=== PATIENT | female | born 1995 | race Caucasian/White ===

== ENCOUNTER 2016-05-14 17:41 | Emergency (ER) | payer MEDICAID, OTHER ==
[2016-05-14] MEDS ORDERED: IBUPROFEN 800 MG TABLET PO ONE (18:41)
--- NOTE | 2016-05-14 18:41 | ER Document Report ---
ED Medical Screen (RME) - General Stated Complaint: LEFT SIDE NECK NUMBNESS Mode of Arrival: Ambulatory Information source: Patient Notes: Patient was weightlifting felt a pop to left side of neck. Patient with muscle tenderness and spasm to lateral aspect of neck. I have greeted and performed a rapid initial assessment of this patient. A comprehensive ED assessment and evaluation of the patient, analysis of test results and completion of the medical decision making process will be conducted by additional ED providers. TRAVEL OUTSIDE OF THE [place] IN LAST 30 DAYS: No - Related Data Allergies/Adverse Reactions: hydrocortisone [From [facility]] Allergy (Verified 10/16/13 10:14) yerba whitney [From [facility]] Allergy (Verified 10/16/13 10:14) Past Medical History Psychiatric Medical History: Reports: Hx Attention Deficit Hyperactivity Disorder - Immunizations Immunizations up to date: Yes Hx Diphtheria, Pertussis, Tetanus Vaccination: Yes Physical Exam - Vital signs Vitals: Temp Pulse Resp BP Pulse Ox 97.9 F 90 20 132/93 H 100 05/14/16 18:36 05/14/16 18:36 05/14/16 18:36 05/14/16 18:36 05/14/16 18:36 - HEENT Neck: Other - Left lateral neck muscle tenderness and spasm Course - Vital Signs Vital signs: Temp Pulse Resp BP Pulse Ox 97.9 F 90 20 132/93 H 100 05/14/16 18:36 05/14/16 18:36 05/14/16 18:36 05/14/16 18:36 05/14/16 18:36
--- NOTE | 2016-05-15 00:54 | ER Document Report ---
ED Neck/Back Problem - General Chief Complaint: Neck pain, L side pain Stated Complaint: LEFT SIDE NECK NUMBNESS Time seen by provider: 00:48 Mode of Arrival: Ambulatory Information source: Patient Notes: 20-year-old female presents to ED for pain in the left side of her neck. She states she was lifting weights and felt a pop in the left side of her neck which is cause pain down the left side of her back. She states she was lifting weights about 4:00. She states she received ibuprofen in the emergency room when her rapid medical evaluation was done. She states the ibuprofen did not help her. Last menstrual period 05/12/2016. TRAVEL OUTSIDE OF THE [place] IN LAST 30 DAYS: No - HPI Onset: This afternoon - 4. Where: Public place - [place] Onset: Sudden - And has gradually gotten worse Timing: Still present Quality of pain: Sharp Severity: Severe Pain Level: 5 Context: Other - States she was lifting weights Recent injury: Yes Associated symptoms: Other - Left-sided neck going into her shoulder. Exacerbated by: Movement of neck Relieved by: Nothing Similar symptoms previously: No Recently seen / treated by doctor: No - Related Data Allergies/Adverse Reactions: hydrocortisone [From [facility]] Allergy (Verified 10/16/13 10:14) yerba whitney [From [facility]] Allergy (Verified 10/16/13 10:14) Past Medical History - General Information source: Patient Last Menstrual Period: 05/12/2016 - Social History Smoking Status: Never Smoker Cigarette use (# per day): No Chew tobacco use (# tins/day): No Smoking Education Provided: No Frequency of alcohol use: None Drug Abuse: None Occupation: no Lives with: Other - Friend Family History: CAD, DM Patient has suicidal ideation: No Patient has homicidal ideation: No - Past Medical History Cardiac Medical History: Reports: None Pulmonary Medical History: Reports: None EENT Medical History: Reports: None Neurological Medical History: Reports: None Endocrine Medical History: Reports: None Renal/ Medical History: Reports: None Malignancy Medical History: Reports: None GI Medical History: Reports: None Musculoskeltal Medical History: Reports Hx Musculoskeletal Trauma Skin Medical History: Reports None Psychiatric Medical History: Reports: Hx Attention Deficit Hyperactivity Disorder Traumatic Medical History: Reports: Hx Fractures - Thumb Infectious Medical History: Reports: None Past Surgical History: Reports: Hx Oral Surgery - Immunizations Immunizations up to date: Yes Hx Diphtheria, Pertussis, Tetanus Vaccination: Yes - 2014 Review of Systems - Review of Systems Constitutional: No symptoms reported Cardiovascular: No symptoms reported Respiratory: No symptoms reported Gastrointestinal: No symptoms reported Genitourinary: No symptoms reported Female Genitourinary: No symptoms reported Musculoskeletal: Muscle pain, Neck pain - Left-sided neck Skin: No symptoms reported Hematologic/Lymphatic: No symptoms reported Neurological/Psychological: No symptoms reported -: Yes All other systems reviewed and negative Physical Exam - Vital signs Vitals: Temp Pulse Resp BP Pulse Ox 97.9 F 90 20 132/93 H 100 05/14/16 18:36 05/14/16 18:36 05/14/16 18:36 05/14/16 18:36 05/14/16 18:36 Interpretation: Normal - General General appearance: Appears well, Alert - HEENT Head: Normocephalic, Atraumatic Eyes: Normal Pupils: PERRL - Respiratory Respiratory status: No respiratory distress Chest status: Nontender Breath sounds: Normal Chest palpation: Normal - Cardiovascular Rhythm: Regular Heart sounds: Normal auscultation Murmur: No - Abdominal Inspection: Normal Distension: No distension Bowel sounds: Normal Tenderness: Nontender Organomegaly: No organomegaly - Back Back: Normal, Tender - Upper left back and neck. No: Deformity/step-off, CVA tenderness, Vertebra tenderness, Scars, Scoliosis, Wounds - Extremities General upper extremity: Normal inspection, Nontender, Normal color, Normal ROM , Normal temperature General lower extremity: Normal inspection, Nontender, Normal color, Normal ROM , Normal temperature, Normal weight bearing. No: Nancy's sign - Neurological Neuro grossly intact: Yes Cognition: Normal Orientation: AAOx4 Tang Coma Scale Eye Opening: Spontaneous Tang Coma Scale Verbal: Oriented Hampton Coma Scale Motor: Obeys Commands Tang Coma Scale Total: 15 Speech: Normal Motor strength normal: LUE, RUE, LLE, RLE Sensory: Normal - Psychological Associated symptoms: Normal affect, Normal mood - Skin Skin Temperature: Warm Skin Moisture: Dry Skin Color: Normal Course - Re-evaluation Re-evalutation: 05/15/16 01:00 Instructed patient on use of ice and ibuprofen and muscle relaxers. Instructed patient to follow-up in the next day or so with either her primary doctor or Dr. Christian sports medicine. Instructed patient on the importance of exercises to this muscle not holding still. - Vital Signs Vital signs: Temp Pulse Resp BP Pulse Ox 98.0 F 88 18 128/85 H 99 05/15/16 00:49 05/15/16 00:49 05/14/16 23:07 05/15/16 00:49 05/15/16 00:49 Discharge - Discharge Clinical Impression: Cervical muscle strain Qualifiers: Encounter type: initial encounter Qualified Code(s): S16.1XXA - Strain of muscle, fascia and tendon at neck level, initial encounter Disposition: HOME, SELF-CARE Instructions: Family Physicians / Practices Additional Instructions: NECK INJURY (CERVICAL STRAIN): You have a neck strain. This is an injury to the muscles and ligaments in the neck. There is no evidence of a fracture of the neck bones. Also, no injury to the spinal cord or nerve roots was detected. Usually, stiffness and pain INCREASE for the first 24-48 hours after the injury. The pain will gradually resolve and the neck will become more mobile. Most patients are back at work or school within a few days. Typically, complete healing takes about two or three weeks. The usual initial treatment is rest and cold packs. A neck collar may be placed to keep the muscles of the neck at rest. Antiinflammatory and muscle relaxing medication are often used to reduce the spasm and irritation. You should call the doctor, or go to the hospital, if you develop numbness or weakness in any extremity, problems with your bladder or bowel, or pain radiating down the arms. MUSCLE STRAIN: You have strained a muscle -- torn the fibers within the muscle. This often occurs with strenuous exertion, or during an injury that suddenly stretches the muscle. The seriousness of a strain varies. Some strains heal within days, others cause problems for months. X-rays cannot show a muscle strain. X-rays are taken only if symptoms suggest that a fracture could be present. The usual treatment of a muscle strain is rest and ice packs. Sometimes, a sling, splint, or crutches may be necessary to rest the muscle. The muscle can be used again once pain subsides. Severe strains require a special exercise and stretching program to prevent permanent stiffness and disability. Your doctor will advise you if this will be necessary. Call the doctor immediately if pain or swelling becomes severe, or if numbness or discoloration develop. ICE PACKS: Apply ice packs frequently against the painful area. Many different schedules are recommended, such as "20 minutes on, 20 minutes off" or "one hour ice, two hours rest." If you need to work, you may need to go longer between ice treatments. You should plan to have the area ice packed AT LEAST one fourth of the time. The ice should be applied over the wrap, tape, or splint, or over a layer of cloth -- not directly against the skin. Some ice bags have a built-in cloth and can be put directly on the skin. WARM PACKS: After approximately two days, apply gentle heat (such as a heating pad or hot water bottle) for about 20 to 30 minutes about every two hours -- at least four times daily. Warmth and elevation will help you make a more rapid recovery , and will ease the pain considerably. Do not use HOT heat, and never apply heat for longer than 30 minutes. The continuous heat can invisibly damage skin and muscles -- even when no burn is seen on the surface. Damaged muscles can make you MORE sore. MUSCLE RELAXERS: Muscle relaxing medications are usually prescribed for acute muscle spasm or injury to the neck and back. They are often combined with antiinflammatory pain medication for increased relief. You may stop the muscle relaxer when the pain and stiffness have improved. Start the medication again if spasms recur. Muscle relaxers may cause drowsiness, especially with the first dose. Do not operate machinery or drive while under the effects of the medication. Most muscle relaxers last up to 24 hours. Do not combine the medication with alcohol. Ibuprofen Ibuprofen is an excellent, safe drug for pain control. In addition, it has potent antiinflammatory effects which are beneficial, especially in the treatment of injuries, arthritis, or tendonitis. It's best to take ibuprofen with food. Persons with ulcer disease or allergy to aspirin should notify their physician of this before taking ibuprofen. Take the medication exactly as prescribed. Don't take additional doses unless instructed to do so by your doctor. If you develop wheezing, shortness of breath, hives, faintness, stomach pain, vomiting, or dark black stools, return for re-evaluation at once. FOLLOW-UP CARE: If you have been referred to a physician for follow-up care, call the physician s office for an appointment as you were instructed or within the next two days. If you experience worsening or a significant change in your symptoms, notify the physician immediately or return to the Emergency Department at any time for re-evaluation. Prescriptions: Ibuprofen 600 mg PO Q6HP PRN #20 tablet PRN Reason: Cyclobenzaprine HCl [Flexeril 10 mg Tablet] 10 mg PO TIDP PRN #15 tab PRN Reason: Forms: Elevated Blood Pressure Referrals: JOSE CHRISTIAN MD [ACTIVE STAFF] - Follow up as needed
[2016-05-15 00:57] VITALS: BP 128/85
[2016-05-15] MEDS ORDERED: CYCLOBENZAPRINE HCL 10 MG TABLET PO ONE (00:58)
== END 2016-05-15 01:05 | disposition home or self-care (01) ==
LOC: ER 17:41
DX: S16.1XXA Strain of muscle, fascia and tendon at neck level, initial encounter (principal); X50.0XXA Overexertion from strenuous movement or load, initial encounter; Y93.B9 Activity, other involving muscle strengthening exercises; Y92.39 Other specified sports and athletic area as the place of occurrence of the external cause; M54.2 Cervicalgia; Z88.8 Allergy status to other drugs, medicaments and biological substances
CPT/HCPCS: 99283

== ENCOUNTER 2017-06-17 14:10 | Emergency (ER) | payer SELFPAY ==
[2017-06-17] MEDS ORDERED: ACETAMINOPHEN 325 MG TABLET PO ONE (14:48)
[2017-06-17] MEDS ORDERED: IBUPROFEN 800 MG TABLET PO ONE (16:03)
--- NOTE | 2017-06-17 16:04 | ER Document Report ---
HPI - HPI Patient complains to provider of: cold symptoms Onset: Other - 4 days Onset/Duration: Persistent Quality of pain: Achy Pain Level: 5 Context: Patient presents complaining of four-day history of fever, sore throat, body aches and nonproductive cough. Patient denies any vomiting or diarrhea. 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 Associated Symptoms: Nonproductive cough, Fever, Sore throat. denies: Earache, Nausea, Vomiting Exacerbated by: Denies Relieved by: Denies Similar symptoms previously: Yes Recently seen / treated by doctor: No - ROS ROS below otherwise negative: Yes Systems Reviewed and Negative: Yes All other systems reviewed and negative - CONSTITUTIONAL Constitutional: REPORTS: Fever - EENT EENT: REPORTS: Sore Throat - RESPIRATORY Respiratory: REPORTS: Coughing. DENIES: Trouble Breathing - GASTROINTESTINAL Gastrointestinal: DENIES: Abdominal Pain, Nausea, Patient vomiting, Diarrhea - REPRODUCTIVE Reproductive: DENIES: : - MUSCULOSKELETAL Musculoskeletal: DENIES: Back Pain - DERM Skin Color: Normal Skin Problems: None Past Medical History - General Information source: Patient - Social History Smoking Status: Never Smoker Frequency of alcohol use: None Drug Abuse: None Occupation: daycare Lives with: Family Family History: CAD, DM Renal/ Medical History: Denies: Hx Peritoneal Dialysis Musculoskeltal Medical History: Reports Hx Musculoskeletal Trauma Psychiatric Medical History: Reports: Hx Attention Deficit Hyperactivity Disorder Traumatic Medical History: Reports: Hx Fractures - Thumb Past Surgical History: Reports: Hx Oral Surgery - Immunizations Immunizations up to date: Yes Hx Diphtheria, Pertussis, Tetanus Vaccination: Yes - 2014 Vertical Provider Document - CONSTITUTIONAL Agree With Documented VS: Yes Exam Limitations: No Limitations General Appearance: WD/WN, No Apparent Distress - INFECTION CONTROL TRAVEL OUTSIDE OF THE [place] IN LAST 30 DAYS: No - HEENT HEENT: Atraumatic, Normocephalic, Pharyngeal Tenderness, Pharyngeal Erythema. negative: Pharyngeal Exudate, Tympanic Membrane Red, Tympanic Membrane Bulging - NECK Neck: Normal Inspection, Supple. negative: Lymphadenopathy-Left, Lymphadenopathy-Right - RESPIRATORY Respiratory: No Respiratory Distress, Chest Non-Tender. negative: Rales, Rhonchi, Wheezing O2 Sat by Pulse Oximetry: 99 Notes: dry cough - CARDIOVASCULAR Cardiovascular: Regular Rhythm, No Murmur, Tachycardia - GI/ABDOMEN Gastrointestinal: Abdomen Soft, Abdomen Non-Tender - BACK Back: Normal Inspection. negative: CVA Tenderness-Right, CVA Tenderness-Left - MUSCULOSKELETAL/EXTREMETIES Musculoskeletal/Extremeties: LAI PIERRE - NEURO Level of Consciousness: Awake, Alert, Appropriate Motor/Sensory: No Motor Deficit - DERM Integumentary: Warm, Dry, No Rash Course - Re-evaluation Re-evalutation: 06/17/17 17:10 Respirations unlabored. Patient nontoxic in appearance. No concern for pneumonia, or SERVICE ESTABLISHMENT ATTENDANT, or sepsis. Discussed worsening signs or symptoms of patient to return immediately. Patient verbalized understanding and agrees with plan of care. - Vital Signs Vital signs: Temp Pulse Resp BP Pulse Ox 99.4 F 115 H 21 H 108/66 99 06/17/17 15:49 06/17/17 14:42 06/17/17 14:42 06/17/17 14:42 06/17/17 14:42 - Laboratory Laboratory results interpreted by me: 06/17/17 17:10 Labs- Entire Visit 06/17/17 16:10 Group A Strep Rapid NEGATIVE - Diagnostic Test Radiology reviewed: Reports reviewed Discharge - Discharge Clinical Impression: Fever Qualifiers: Fever type: unspecified Qualified Code(s): R50.9 - Fever, unspecified Upper respiratory infection Qualifiers: URI type: unspecified URI Qualified Code(s): J06.9 - Acute upper respiratory infection, unspecified Condition: Stable Disposition: HOME, SELF-CARE Instructions: Acetaminophen, Fever ([facility]), Upper Respiratory Illness ([facility]) Additional Instructions: Return immediately for any new or worsening symptoms Followup with your primary care provider, call tomorrow to make a followup appointment Prescriptions: Benzonatate [Tessalon Perle 100 mg Capsule] 100 mg PO Q8HP PRN #20 cap PRN Reason: Naproxen [Naprosyn 250 Nmg Tablet] 1 tab PO BID #14 tablet Forms: Return to Work Referrals: [facility] [Provider Group] - Follow up as needed
--- NOTE | 2017-06-17 17:01 | RADIOLOGY REPORT (SQ) ---
EXAM DESCRIPTION: CHEST PA/LAT COMPLETED DATE/TIME: 06/17/2017 4:46 pm REASON FOR STUDY: fever, cough COMPARISON: None. EXAM PARAMETERS: NUMBER OF VIEWS: two views TECHNIQUE: Digital Frontal and Lateral radiographic views of the chest acquired. RADIATION DOSE: NA LIMITATIONS: none FINDINGS: LUNGS AND PLEURA: No opacities, masses or pneumothorax. No pleural effusion. MEDIASTINUM AND HILAR STRUCTURES: No masses or contour abnormalities. HEART AND VASCULAR STRUCTURES: Heart normal size. No evidence for failure. BONES: No acute findings. HARDWARE: None in the chest. OTHER: No other significant finding. IMPRESSION: NO SIGNIFICANT RADIOGRAPHIC FINDING IN THE CHEST. TECHNICAL DOCUMENTATION: JOB ID: [id number] [employer]- All Rights Reserved Reading location - IP/workstation name: [email or web address]
[2017-06-17 17:25] VITALS: BP 112/64
== END 2017-06-17 17:26 | disposition home or self-care (01) ==
LOC: ER 14:10
DX: J06.9 Acute upper respiratory infection, unspecified (principal); R50.9 Fever, unspecified; J02.9 Acute pharyngitis, unspecified; R05 Cough
CPT/HCPCS: 71046; 87070; 87077; 87880; 99284

== ENCOUNTER 2017-08-19 10:15 | Emergency (ER) | payer SELFPAY ==
[2017-08-19] MEDS ORDERED: ONDANSETRON 4 MG TAB.RAPDIS PO ONE (11:00)
[2017-08-19] MEDS ORDERED: DICYCLOMINE HCL 20 MG TABLET PO ONE (11:00)
--- NOTE | 2017-08-19 11:02 | ER Document Report ---
ED Medical Screen (RME) - General Chief Complaint: Vomiting Stated Complaint: VOMITING Time Seen by Provider: 08/19/17 10:56 Notes: RAPID MEDICAL EVALUATION DISCLOSURE I have seen this patient as part of a Rapid Medical Evaluation and, if applicable, placed any initially appropriate orders. The patient will be seen and fully evaluated, including a full history and physical exam, by a provider ( in Main ED or Fast Track) when a room becomes available. 21-year-old female here with complaints of nausea and vomiting as well as epigastric abdominal pain ongoing for the past 2-3 days. Pain is worse with standing and improved with eating something. She has tried using Tylenol with minimal relief. She does not have diarrhea fevers chills dysuria hematuria. No known sick contacts. Does not think she consumed anything that may have given her food poisoning. EXAM CTAB RRR Mild epigastric TTP Minimal RUQ TTP, no Leary sign No peritoneal signs TRAVEL OUTSIDE OF THE [place] IN LAST 30 DAYS: No - Related Data Allergies/Adverse Reactions: hydrocortisone [From [facility]] Allergy (Verified 08/19/17 10:16) yerba whitney [From [facility]] Allergy (Verified 08/19/17 10:16) Past Medical History Renal/ Medical History: Denies: Hx Peritoneal Dialysis Musculoskeltal Medical History: Reports Hx Musculoskeletal Trauma Psychiatric Medical History: Reports: Hx Attention Deficit Hyperactivity Disorder Traumatic Medical History: Reports: Hx Fractures - Thumb Past Surgical History: Reports: Hx Oral Surgery - Immunizations Immunizations up to date: Yes Hx Diphtheria, Pertussis, Tetanus Vaccination: Yes - 2014 Physical Exam - Vital signs Vitals: Temp Pulse Resp BP Pulse Ox 98.5 F 82 18 119/72 100 08/19/17 10:21 08/19/17 10:21 08/19/17 10:21 08/19/17 10:21 08/19/17 10:21 Course - Vital Signs Vital signs: Temp Pulse Resp BP Pulse Ox 98.5 F 82 18 119/72 100 08/19/17 10:21 08/19/17 10:21 08/19/17 10:21 08/19/17 10:21 08/19/17 10:21
--- NOTE | 2017-08-19 11:16 | ER Document Report ---
ED GI/ - General Chief Complaint: Vomiting Stated Complaint: VOMITING Time Seen by Provider: 08/19/17 10:56 Notes: Patient is a 21-year-old female presents emergency from the chief complaint of epigastric pain, nausea and vomiting that started on Saturday. She admits to sharp stabbing burning pain in the epigastric area with associated nausea and vomiting. Patient states that she has been trying Tylenol [id number] without much improvement. She denies any other medical issues. Last menstrual period was last month. TRAVEL OUTSIDE OF THE [place] IN LAST 30 DAYS: No - Related Data Allergies/Adverse Reactions: hydrocortisone [From [facility]] Allergy (Verified 08/19/17 10:16) yerba whitney [From [facility]] Allergy (Verified 08/19/17 10:16) Past Medical History - Social History Smoking Status: Never Smoker Frequency of alcohol use: None Drug Abuse: None Family History: CAD, DM Patient has suicidal ideation: No Patient has homicidal ideation: No Renal/ Medical History: Denies: Hx Peritoneal Dialysis Musculoskeltal Medical History: Reports Hx Musculoskeletal Trauma Psychiatric Medical History: Reports: Hx Attention Deficit Hyperactivity Disorder Traumatic Medical History: Reports: Hx Fractures - Thumb Past Surgical History: Reports: Hx Oral Surgery - Immunizations Immunizations up to date: Yes Hx Diphtheria, Pertussis, Tetanus Vaccination: Yes - 2014 Physical Exam - Vital signs Vitals: Temp Pulse Resp BP Pulse Ox 98.5 F 82 18 119/72 100 08/19/17 10:21 08/19/17 10:21 08/19/17 10:21 08/19/17 10:21 08/19/17 10:21 - Notes Notes: PHYSICAL EXAM GENERAL: Alert, interacts well. HEAD: Normocephalic, atraumatic. EYES: Pupils equal, round, and reactive to light. Extraocular movements intact. ENT: Oral mucosa moist, tongue midline. NECK: Full range of motion. Supple. Trachea midline. LUNGS: Clear to auscultation bilaterally, no wheezes, rales, or rhonchi. No respiratory distress. HEART: Regular rate and rhythm. No murmurs, gallops, or rubs. ABDOMEN: Soft, nondistended, epigastric tenderness no guarding, rebound, or rigidity.. Bowel sounds present in all 4 quadrants. EXTREMITIES: Moves all 4 extremities spontaneously. No edema, radial and dorsalis pedis pulses 2/4 bilaterally. No cyanosis. NEUROLOGICAL: Alert and oriented x4. Normal speech. PSYCH: Normal affect, normal mood. SKIN: Warm, dry, normal turgor. No rashes or lesions noted. Course - Re-evaluation Re-evalutation: 08/19/17 16:38 Patient is 21-year-old female is hemodynamically stable, no acute distress and afebrile. Patient with tender epigastric abdomen without any rebound, concerns or peritonitis. Patient did not improve after 2 p.o. GI cocktails. Based on this sent for CT scan to rule out for any concerns or perforating ulcer or esophageal perforation. CT was negative for any concern of this. Patient had significant improvement after IV pain medication, Protonix and IV fluids. Repeat abdominal exams nontender to palpation. Patient will be discharged home on GI prophylactic medications and nausea medications to follow-up with gastroenterology. Patient agrees with plan. - Vital Signs Vital signs: Temp Pulse Resp BP Pulse Ox 98.5 F 82 18 119/72 100 08/19/17 10:21 08/19/17 10:21 08/19/17 10:21 08/19/17 10:21 08/19/17 10:21 - Laboratory Result Diagrams: 08/19/17 11:23 08/19/17 11:23 - Diagnostic Test Radiology reviewed: Image reviewed, Reports reviewed Discharge - Discharge Clinical Impression: Gastritis Qualifiers: Gastritis type: unspecified gastritis Chronicity: acute Gastritis bleeding: without bleeding Qualified Code(s): K29.00 - Acute gastritis without bleeding Condition: Good Disposition: HOME, SELF-CARE Instructions: Gastritis ([facility]), Gastroenterology Prescriptions: Omeprazole Magnesium [Prilosec Otc] 20 mg PO DAILY #30 tablet. Ondansetron HCl [Zofran 4 mg Tablet] 1 - 2 tab PO Q4H PRN #10 tablet PRN Reason: Promethazine HCl [Phenergan 25 mg Tablet] 1 - 2 tab PO Q6H PRN #15 tablet PRN Reason: Sucralfate [Carafate 1 gm Tablet] 1 gm PO ACHS #120 tablet Forms: Return to Work Referrals: KAE NGUYEN MD [ACTIVE STAFF] - Follow up in 3-5 days
[2017-08-19 11:48] LABS: ABSOLUTE EOSINOPHILS # (AUTO) 0.1 10^3/uL (0.0-0.6); ABSOLUTE LYMPHOCYTES (AUTO) 1.5 10^3/uL (0.5-4.7); ABSOLUTE MONOCYTES (AUTO) 0.6 10^3/uL (0.1-1.4); ABSOLUTE NEUT (AUTO) 7.1 10^3/uL (1.7-8.2); BASOPHILS % (AUTO) 0.3 % (0-2); EOSINOPHILS % (AUTO) 0.6 % (0-6); HEMATOCRIT 42.2 % (36.0-47.0); HEMOGLOBIN 14.3 g/dL (12.0-15.5); LYMPHOCYTES % (AUTO) 16.5 % (13-45); MEAN CORPUSCULAR HEMOGLOBIN 31.5 pg (27.0-33.4); MEAN CORPUSCULAR VOLUME 93 fl (80-97); MONOCYTES % (AUTO) 6.6 % (3-13); PLATELET COUNT 222 10^3/uL (150-450); RED BLOOD COUNT 4.56 10^6/uL (3.72-5.28); RED CELL DISTRIBUTION WIDTH 13.4 % (11.5-14.0); TOTAL CELLS COUNTED % (AUTO) 100 %; WHITE BLOOD COUNT 9.4 10^3/uL (4.0-10.5)
[2017-08-19 12:07] LABS: ALANINE AMINOTRANSFERASE 22 U/L (9-52); ALBUMIN 4.5 g/dL (3.5-5.0); ALKALINE PHOSPHATASE 60 U/L (38-126); ANION GAP 11 (5-19); ASPARTATE AMINO TRANSFERASE 15 U/L (14-36); BILIRUBIN,DIRECT 0.3 mg/dL (0.0-0.4); BILIRUBIN,TOTAL 0.6 mg/dL (0.2-1.3); BLOOD UREA NITROGEN 7 mg/dL (7-20); CALCIUM 9.5 mg/dL (8.4-10.2); CARBON DIOXIDE 30 mmol/L (22-30); CHLORIDE 101 mmol/L (98-107); GLUCOSE 90 mg/dL (75-110); LIPASE 24.8 U/L (23-300); POTASSIUM 4.4 mmol/L (3.6-5.0); SODIUM 142.4 mmol/L (137-145); TOTAL PROTEIN 7.3 g/dL (6.3-8.2)
[2017-08-19] MEDS ORDERED: METOCLOPRAMIDE HCL ORAL SOLN 10 MG/10 ML UDCUP PO ONE (12:31)
[2017-08-19] MEDS ORDERED: LIDOCAINE 2% VISCOUS SOLN 20 ML UDCUP PO ONE (12:31)
[2017-08-19] MEDS ORDERED: MAG HYDROX/AL HYDROX/SIMETH SUSP 30 ML UDCUP PO ONE (12:31)
[2017-08-19] MEDS ORDERED: PANTOPRAZOLE SODIUM 40 MG VIAL IV ONE (14:10)
[2017-08-19] MEDS ORDERED: PROCHLORPERAZINE EDISYLATE INJ 10 MG/2 ML VIAL IV ONE (14:36)
[2017-08-19] MEDS ORDERED: KETOROLAC TROMETHAMINE INJ/PF 30 MG/1 ML SDV IV ONE (14:36)
--- NOTE | 2017-08-19 14:45 | RADIOLOGY REPORT (SQ) ---
EXAM DESCRIPTION: CT ABD/PELVIS WITH IV ONLY COMPLETED DATE/TIME: 08/19/2017 2:24 pm REASON FOR STUDY: epigastric pain COMPARISON: None. TECHNIQUE: CT scan of the abdomen and pelvis performed using helical scanning technique with dynamic intravenous contrast injection. No oral contrast. Images reviewed with lung, soft tissue, and bone windows. Reconstructed coronal and sagittal MPR images reviewed. Delayed images for evaluation of the urinary system also acquired. All images stored on PACS. All CT scanners at this facility use dose modulation, iterative reconstruction, and/or weight based d osing when appropriate to reduce radiation dose to as low as reasonably achievable (ALARA). [facility]: Dose Right [facility]: CareDose [facility]: Dose Right [facility]: Teradose 4D [facility]: [employer] CONTRAST TYPE AND DOSE: 63 mL of IV Isovue 370- low osmolar. RENAL FUNCTION: None required. The patient is less than 50 years old. RADIATION DOSE: 11 mGy. LIMITATIONS: No oral contrast FINDINGS: There is marked wall thickening and luminal narrowing of the gastric antrum involving a 10 cm long segment of the stomach wall. This is worrisome for gastritis. No intramural air. No surro unding inflammation in the abdominal wall fat. No free upper abdominal fluid. This report was mendoza d to Sudha Stanley in the emergency room, 1425 hours 08/19/2017. These findings are best demonstrat ed on axial images 23-30, sagittal images 45-59, and coronal image 15. Remainder of the gastrointestinal tract is otherwise unremarkable. No free intraperitoneal air or fl uid. LOWER CHEST: No significant findings. No nodules or infiltrates. LIVER: Normal size. No masses. No dilated ducts. SPLEEN: Normal size. No focal lesions. PANCREAS: No masses. No significant calcifications. No adjacent inflammation or peripancreatic fluid collections. Pancreatic duct not dilated. GALLBLADDER: No identified stones by CT criteria. No inflammatory changes to suggest cholecystitis. ADRENAL GLANDS: No significant masses or asymmetry. RIGHT KIDNEY AND URETER: No solid masses. No significant calcifications. No hydronephrosis or hyd roureter. LEFT KIDNEY AND URETER: No solid masses. No significant calcifications. No hydronephrosis or hydr oureter. AORTA AND VESSELS: No aneurysm. No dissection. Renal arteries, SMA, celiac without stenosis. RETROPERITONEUM: No retroperitoneal adenopathy, hemorrhage or masses. BOWEL AND PERITONEAL CAVITY: Marked wall thickening and luminal narrowing of the gastric antrum worri some for gastritis. A discrete ulcer is not definitely seen by CT but could be missed without oral c ontrast. Remainder of the gastrointestinal tract is unremarkable APPENDIX: Normal. PELVIS: No mass. No free fluid. Normal bladder. ABDOMINAL WALL: No masses. No hernias. BONES: No significant or acute findings. OTHER: No other significant finding. IMPRESSION: Diffuse thickening of the gastric antrum worrisome for gastritis. A discrete ulcer coul d not be excluded by CT. TECHNICAL DOCUMENTATION: JOB ID: [id number] Quality ID # [id number]: Final reports with documentation of one or more dose reduction techniques (e.g., Au tomated exposure control, adjustment of the mA and/or kV according to patient size, use of iterative reconstruction technique) 2010 [employer]- All Rights Reserved Reading location - IP/workstation name: [email or web address]
[2017-08-19] MEDS ORDERED: FAMOTIDINE INJ/PF 20 MG/2 ML SDV IV ONE (14:50)
[2017-08-19] MEDS ORDERED: NORMAL SALINE 1000 ML 1,000 ML IV ONE (15:03)
[2017-08-19 16:54] VITALS: BP 118/68
== END 2017-08-19 17:02 | disposition home or self-care (01) ==
LOC: ER 10:15
DX: K29.00 Acute gastritis without bleeding (principal); R10.13 Epigastric pain; R11.2 Nausea with vomiting, unspecified; Z88.8 Allergy status to other drugs, medicaments and biological substances
CPT/HCPCS: 99284; 96361; 96374; 96375; 36415; 83690; 85025; 81025; 80053; 74177; J3490 ×2; S0119; J1885; S0164; J0780; J7030; S0028

== ENCOUNTER 2017-08-20 22:31 | Emergency (ER) | payer SELFPAY ==
[2017-08-20 23:03] VITALS: BP 130/76
[2017-08-21] MEDS ORDERED: AMOXICILLIN TRYHYD 250 MG/5 ML SUSP 80 ML (ER DISP) PO ONE (01:02)
--- NOTE | 2017-08-21 01:06 | ER Document Report ---
ED ENT - General Chief Complaint: Ear Pain Stated Complaint: EAR PAIN Time Seen by Provider: 08/21/17 00:57 Mode of Arrival: Ambulatory Information source: Patient Notes: 21-year-old female presents to ED for complaint of left ear pain. She states that the pain was achy for about 8:00 tonight it became excruciating. TRAVEL OUTSIDE OF THE [place] IN LAST 30 DAYS: No - HPI Patient complains to provider of: Ear problem Onset: Yesterday Onset/Duration: Gradual, Worse Quality of pain: Achy, Sharp, Stabbing Severity: Severe Pain Level: 5 Context: Recent Illness Location of pain: Ears Associated symptoms: Ear pain, Ear drainage Similar symptoms previously: Yes Recently seen / treated by doctor: No - Related Data Allergies/Adverse Reactions: hydrocortisone [From [facility]] Allergy (Verified 08/19/17 10:16) yerba whitney [From [facility]] Allergy (Verified 08/19/17 10:16) Past Medical History - General Information source: Patient - Social History Smoking Status: Never Smoker Cigarette use (# per day): No Chew tobacco use (# tins/day): No Smoking Education Provided: No Frequency of alcohol use: None Drug Abuse: None Occupation: Teacher at [employer] Lives with: Spouse/Significant other Family History: CAD, DM Patient has suicidal ideation: No Patient has homicidal ideation: No - Past Medical History Cardiac Medical History: Reports: None Pulmonary Medical History: Reports: None EENT Medical History: Reports: None Neurological Medical History: Reports: None Endocrine Medical History: Reports: None Renal/ Medical History: Reports: None Malignancy Medical History: Reports: None GI Medical History: Reports: None Musculoskeltal Medical History: Reports Hx Musculoskeletal Trauma Skin Medical History: Reports None Psychiatric Medical History: Reports: Hx Attention Deficit Hyperactivity Disorder Traumatic Medical History: Reports: Hx Fractures - Thumb Infectious Medical History: Reports: None Past Surgical History: Reports: Hx Oral Surgery - Immunizations Immunizations up to date: Yes Hx Diphtheria, Pertussis, Tetanus Vaccination: Yes - 2014 Review of Systems - Review of Systems Constitutional: Recent illness EENT: Ear pain, Ear discharge Cardiovascular: No symptoms reported Respiratory: No symptoms reported Gastrointestinal: No symptoms reported Genitourinary: No symptoms reported Female Genitourinary: No symptoms reported Musculoskeletal: No symptoms reported Skin: No symptoms reported Hematologic/Lymphatic: No symptoms reported Neurological/Psychological: No symptoms reported -: Yes All other systems reviewed and negative Physical Exam - Vital signs Vitals: Temp Pulse Resp BP Pulse Ox 98.3 F 78 18 130/76 H 100 08/20/17 23:03 08/20/17 23:03 08/20/17 23:03 08/20/17 23:03 08/20/17 23:03 Interpretation: Normal - General General appearance: Appears well, Alert - HEENT Head: Normocephalic, Atraumatic Eyes: Normal Pupils: PERRL Ears: Normal External canal: Other - Small amount of blood noted in the ear canal Tympanic membrane: Bulging, Injected, Loss of landmarks Sinus: Normal Nasal: Normal Mouth/Lips: Normal Mucous membranes: Normal Pharynx: Normal Neck: Normal - Respiratory Respiratory status: No respiratory distress Chest status: Nontender Breath sounds: Normal Chest palpation: Normal - Cardiovascular Rhythm: Regular Heart sounds: Normal auscultation Murmur: No - Abdominal Inspection: Normal Distension: No distension Bowel sounds: Normal Tenderness: Nontender Organomegaly: No organomegaly - Back Back: Normal, Nontender - Extremities General upper extremity: Normal inspection, Nontender, Normal color, Normal ROM , Normal temperature General lower extremity: Normal inspection, Nontender, Normal color, Normal ROM , Normal temperature, Normal weight bearing. No: Nancy's sign - Neurological Neuro grossly intact: Yes Cognition: Normal Orientation: AAOx4 Tang Coma Scale Eye Opening: Spontaneous [place] Coma Scale Verbal: Oriented [place] Coma Scale Motor: Obeys Commands [place] Coma Scale Total: 15 Speech: Normal Motor strength normal: LUE, RUE, LLE, RLE Sensory: Normal - Psychological Associated symptoms: Normal affect, Normal mood - Skin Skin Temperature: Warm Skin Moisture: Dry Skin Color: Normal Course - Re-evaluation Re-evalutation: 08/21/17 01:06 Patient was treated with amoxicillin in the emergency room and discharged home with prescription for amoxicillin and instructed to follow-up with the ENT and a primary care doctor. Patient was given Comins dispense pack in the emergency room for her pain. - Vital Signs Vital signs: Temp Pulse Resp BP Pulse Ox 98.3 F 78 18 130/76 H 100 08/20/17 23:03 08/20/17 23:03 08/20/17 23:03 08/20/17 23:03 08/20/17 23:03 Discharge - Discharge Clinical Impression: Left otitis media Qualifiers: Otitis media type: unspecified Qualified Code(s): H66.92 - Otitis media, unspecified, left ear Condition: Stable Disposition: HOME, SELF-CARE Instructions: Family Physicians / Practices, Use of [id number]-Fko-Rdodxyj Ibuprofen ([facility]) Additional Instructions: OTITIS MEDIA: You have a middle ear infection (otitis media). This is usually a complication of a cold or sore throat. The middle ear cavity becomes filled with infection. Pressure and stretching of the ear drum cause pain. Antibiotics are required. A 10 day course is usually prescribed. A decongestant may be recommended if you have a "runny nose." You may need anesthetic drops or other pain medication. A follow-up exam may be recommended to make sure the infection has completely cleared. If the ear begins to drain, it means the ear drum has ruptured. This will usually heal spontaneously. However, it means you should keep the ear dry until re-examined by a doctor. Call the physician or return for examination at once if there is severe headache, stiff neck, confusion, increasing fever, or dizziness. You should improve significantly within two days. If you're not better, call the doctor. AMOXICILLIN: Amoxicillin is a member of the penicillin family. It covers the germs likely to cause ear, bronchial, and urinary infections better than plain penicillin. Amoxicillin can be taken without regard to meals. Nausea after taking the medication is rare, but can occur. Diarrhea can occur, particularly in small children. Vaginal yeast infections and oral thrush in infants are also common. Contact your physician if these problems occur. Allergy to penicillins is common. If you have had an allergic reaction to any drug of the penicillin family, you should never take any other penicillin. Notify your doctor at once if you develop hives, itching, swelling, faintness, or shortness of breath. Less serious side effects can include nausea or diarrhea. USE OF ACETAMINOPHEN (Tylenol): Acetaminophen may be taken for pain relief or fever control. It's much safer than aspirin, offering a wider range of "safe" dosages. It is safe during . Some brand names are Tylenol, Panadol, Datril, Anacin 3, Tempra, and Liquiprin. Acetaminophen can be repeated every four hours. The following are maximum recommended dosages: WEIGHT Dose Drops Elixir Chewable( 80mg) (LBS.) drprs=droppers tsp=teaspoon 6 40 mg 0.4 ml (1/2) 6-11 80 mg 0.8 ml (full) tsp 1 tab 12-16 120 mg 1 1/2 drprs 3/4 tsp 1 1/2 tabs 17-23 160 mg 2 drprs 1 tsp 2 tabs 24-30 240 mg 3 drprs 1 1/2 tsp 3 tabs 30-35 320 mg 2 tsp 4 tabs 36-41 360 mg 2 1/4 tsp 4 1/2 tabs 42-47 400 mg 2 1/2 tsp 5 tabs 48-53 480 mg 3 tsp 6 tabs 54-59 520 mg 3 1/4 tsp 6 1/2 tabs 60-64 560 mg 3 1/2 tsp 7 tabs 65-70 600 mg 3 3/4 tsp 7 1/2 tabs 71-76 640 mg 4 tsp 8 tabs 77-82 720 mg 4 1/2 tsp 9 tabs 83-88 800 mg 5 tsp 10 tabs >89 pounds or adults 650 mg to 900 mg Acetaminophen can be repeated every four hours. Maximum dose not to exceed 4000 mg a day. These maximum recommended dosages are slightly higher than the dosages written on the product container, but these dosages are very safe and below the toxic dosage for acetaminophen. ORAL NARCOTIC MEDICATION: You have been given a prescription for pain control. This medication is a narcotic. It's best taken with food, as nausea can result if taken on an empty stomach. Don't operate machinery or drive within six hours of taking this medication. Do not combine this medicine with alcohol, or with any medication which can cause sedation (such as cold tablets or sleeping pills) unless you get permission from the physician. Narcotics tend to cause constipation. If possible, drink plenty of fluids and eat a diet high in fiber and fruits. Please be aware that prescription narcotics also have the potential for abuse. People become addicted to these medications because of the general sense of wellbeing that they induce. This feeling along with a significant reduction in tension, anxiety, and aggression provides a stimulating seductive quality to these drugs. Once your pain is under control, we encourage you to discard your unused narcotics. FOLLOW-UP CARE: If you have been referred to a physician for follow-up care, call the physician s office for an appointment as you were instructed or within the next two days. If you experience worsening or a significant change in your symptoms, notify the physician immediately or return to the Emergency Department at any time for re-evaluation. Prescriptions: Amoxicillin Trihydrate [Amoxil 875 mg Tablet] 1 tab PO BID #20 tablet Forms: Elevated Blood Pressure, Return to Work
[2017-08-21] MEDS ORDERED: HYDROCODONE/ACETAMINOPHEN 5-325 MG (6 TAB/ER DISP) PO PRN (01:07)
[2017-08-21] MEDS ORDERED: AMOXICILLIN TRIHYDRATE 500 MG CAPSULE PO ONE (01:08)
== END 2017-08-21 01:38 | disposition home or self-care (01) ==
LOC: ER 22:31
DX: H66.92 Otitis media, unspecified, left ear (principal); H92.02 Otalgia, left ear
CPT/HCPCS: 99282